=== PATIENT | male | born 1985 | race Caucasian/White ===

== ENCOUNTER 2016-09-20 14:56 | Emergency (ER) | payer OTHER ==
[2016-09-20 15:03] VITALS: BP 120/84
--- NOTE | 2016-09-20 15:34 | UC ---
Respiratory Complaint HPI - HPI Summary HPI Summary: URI last week seems to be resolving but ears feel very clogged and uncomfortable no fevers, daughter with Influenza A - History of Current Complaint Chief Complaint: UCRespiratory Stated Complaint: COUGH Time Seen by Provider: 09/20/16 15:00 Hx Obtained From: Patient Onset/Duration: Gradual Onset, Lasting Days Timing: Constant Severity Initially: Mild Severity Currently: Mild Character: Cough: Nonproductive Aggravating Factors: Nothing Alleviating Factors: Nothing Associated Signs And Symptoms: Positive: URI - Allergies/Home Medications Allergies/Adverse Reactions: Allergies Allergy/AdvReac Type Severity Reaction Status Date / Time seasonal Allergy Congestion Uncoded 09/20/16 15:00 PMH/Surg Hx/FS Hx/Imm Hx Previously Healthy: Yes - Surgical History Surgical History: Yes Surgery Procedure, Year, and Place: [place] teeth - Family History Known Family History: Positive: Unknown - Social History Occupation: Unemployed Lives: With Family Alcohol Use: Occasionally Substance Use Type: None Smoking Status (MU): Current Some Day Smoker Type: Cigarettes Length of Time of Smoking/Using Tobacco: 5 CIGS PER WEEK Have You Smoked in the Last Year: Yes Review of Systems Constitutional: Negative Skin: Negative Eyes: Negative ENT: Ear Ache Respiratory: Negative Cardiovascular: Negative Gastrointestinal: Negative Genitourinary: Negative Motor: Negative Neurovascular: Negative Musculoskeletal: Negative Neurological: Negative Psychological: Negative All Other Systems Reviewed And Are Negative: Yes Physical Exam Triage Information Reviewed: Yes Appearance: Well-Appearing, No Pain Distress, Well-Nourished Vital Signs: Initial Vital Signs Temp 97.9 F 09/20/16 15:01 Pulse 85 09/20/16 15:01 Resp 18 09/20/16 15:01 BP 120/84 09/20/16 15:01 Pulse Ox 98 09/20/16 15:01 Vital Signs Reviewed: Yes Eye Exam: Normal Eyes: Positive: Conjunctiva Clear ENT Exam: Normal ENT: Positive: Normal ENT inspection, Hearing grossly normal, Pharynx normal, Other: - tm occluded with cerumen. Negative: Nasal congestion, Nasal drainage, Tonsillar swelling, Tonsillar exudate, Trismus, Muffled/hoarse voice Dental Exam: Normal Neck exam: Normal Neck: Positive: Supple, Nontender, No Lymphadenopathy Respiratory Exam: Normal Respiratory: Positive: Chest non-tender, Lungs clear, Normal breath sounds, No respiratory distress, No accessory muscle use Cardiovascular Exam: Normal Cardiovascular: Positive: RRR, No Murmur, Pulses Normal, Brisk Capillary Refill Musculoskeletal Exam: Normal Musculoskeletal: Positive: Strength Intact, ROM Intact, No Edema Neurological Exam: Normal Neurological: Positive: Alert, Muscle Tone Normal Psychological Exam: Normal Skin Exam: Normal UC Diagnostic Evaluation - Laboratory O2 Sat by Pulse Oximetry: 98 Re-Evaluation - Re-Evaluation First Eval Change: Improved - excellent resolve of cerumen impaction with flushing patient feels much better Respiratory Course/Dx - Course Course Of Treatment: tylenol, rest increase fluids, follow with pcp avoid q-tips - Differential Dx/Diagnosis Differential Diagnosis/HQI/PQRI: Bronchitis, Influenza, Lower Resp Infection, Other - URI, Cerumen impaction Provider Diagnoses: B/L cerumen impaction, URI Discharge - Discharge Plan Condition: Stable Disposition: HOME Patient Education Materials: Cerumen Impaction (ED), Upper Respiratory Infection (ED) Referrals: Paige Gastelum MD [Primary Care Provider] - If Needed
== END 2016-09-20 15:45 | disposition home or self-care (01) ==
LOC: UCEAST 14:56
DX: J06.9 Acute upper respiratory infection, unspecified (principal); H61.23 Impacted cerumen, bilateral; Z72.0 Tobacco use
CPT/HCPCS: 99213; G0463

== ENCOUNTER 2016-11-06 12:00 | Emergency (ER) | payer OTHER ==
[2016-11-06 13:02] VITALS: BP 133/80
--- NOTE | 2016-11-06 13:35 | UC ---
Throat Pain/Nasal Naman HPI - HPI Summary HPI Summary: ONE WEEK OF SINUS PRESSURE, SORE THROAT AND PAIN. THREE DAYS OF LEFT EAR PAIN. NO FEVER. - History of Current Complaint Chief Complaint: UCRespiratory Stated Complaint: EAR PAIN Time Seen by Provider: 11/06/16 12:57 Hx Obtained From: Patient Onset/Duration: Gradual Onset, Lasting Days, Still Present Severity: Moderate Cough: None Associated Signs & Symptoms: Positive: Hoarseness, Sinus Discomfort, Nasal Discharge - Epiglottits Risk Factors Epiglottis Risk Factors: Negative - Allergies/Home Medications Allergies/Adverse Reactions: Allergies Allergy/AdvReac Type Severity Reaction Status Date / Time seasonal Allergy Congestion Uncoded 11/06/16 12:56 PMH/Surg Hx/FS Hx/Imm Hx Previously Healthy: Yes - Surgical History Surgical History: Yes Surgery Procedure, Year, and Place: [place] teeth - Family History Known Family History: Positive: Unknown - Social History Occupation: Employed Full-time Lives: With Family Alcohol Use: None Substance Use Type: None Smoking Status (MU): Former Smoker Type: Cigarettes Length of Time of Smoking/Using Tobacco: 5 CIGS PER WEEK Have You Smoked in the Last Year: Yes Review of Systems Constitutional: Negative Skin: Negative Eyes: Negative ENT: Sore Throat, Ear Ache, Nasal Discharge Respiratory: Negative Cardiovascular: Negative Gastrointestinal: Negative Genitourinary: Negative Motor: Negative Neurovascular: Negative Musculoskeletal: Negative Neurological: Negative Psychological: Negative All Other Systems Reviewed And Are Negative: Yes Physical Exam Triage Information Reviewed: Yes Appearance: Well-Appearing, No Pain Distress, Well-Nourished Vital Signs: Initial Vital Signs Temp 98.0 F 11/06/16 12:52 Pulse 81 11/06/16 12:52 Resp 18 11/06/16 12:52 BP 133/80 11/06/16 12:52 Pulse Ox 99 11/06/16 12:52 Vital Signs Reviewed: Yes Eye Exam: Normal Eyes: Positive: Conjunctiva Clear ENT: Positive: Pharyngeal erythema, TM bulging, TM dull, Tonsillar swelling, Other: - LEFT CERUMEN IMPACTION Dental Exam: Normal Neck exam: Normal Neck: Positive: Supple, Nontender, No Lymphadenopathy Respiratory Exam: Normal Respiratory: Positive: Chest non-tender, Lungs clear, Normal breath sounds Cardiovascular Exam: Normal Cardiovascular: Positive: RRR, No Murmur, Pulses Normal Abdominal Exam: Normal Abdomen Description: Positive: Nontender, No Organomegaly Musculoskeletal Exam: Normal Neurological Exam: Normal Psychological Exam: Normal Psychological: Positive: Normal Response To Family Skin Exam: Normal Throat Pain/Nasal Course/Dx - Differential Dx/Diagnosis Differential Diagnosis/HQI/PQRI: Sinusitis, Tonsillitis, URI Provider Diagnoses: LEFT CERUMEN IMPACTION. SINUSITIS. OTALGIA Discharge - Discharge Plan Condition: Stable Disposition: HOME Prescriptions: Amoxicillin/Clavulanate TAB* [Augmentin TAB 875*] 875 mg PO BID #20 tab Patient Education Materials: Sinusitis (ED), Earache (ED) Referrals: Paige Gastelum MD [Primary Care Provider] -
== END 2016-11-06 13:40 | disposition home or self-care (01) ==
LOC: UCEAST 12:00
DX: H61.22 Impacted cerumen, left ear (principal); J32.9 Chronic sinusitis, unspecified; H92.02 Otalgia, left ear; Z87.891 Personal history of nicotine dependence
CPT/HCPCS: 99213; G0463

== ENCOUNTER 2017-01-31 11:31 | Emergency (ER) | payer OTHER ==
[2017-01-31 11:45] VITALS: BP 117/71
--- NOTE | 2017-01-31 13:25 | UC ---
Ear Complaint HPI - HPI Summary HPI Summary: complaint of clogged ears ears are filled up hearing has lessened for the last week left ear is slightly pain using q-tips often to clean his ears dneis fever nad nasal congestion - History of Current Complaint Chief Complaint: UCEar Stated Complaint: EAR COMPLAINT Time Seen by Provider: 01/31/17 13:17 Hx Obtained From: Patient - Allergies/Home Medications Allergies/Adverse Reactions: Allergies Allergy/AdvReac Type Severity Reaction Status Date / Time seasonal Allergy Congestion Uncoded 01/31/17 11:45 Home Medications: Home Medications NK [No Home Medications Reported] 01/31/17 [History Confirmed 01/31/17] PMH/Surg Hx/FS Hx/Imm Hx Previously Healthy: Yes - Surgical History Surgical History: Yes Surgery Procedure, Year, and Place: [place] teeth - Family History Known Family History: Negative: Cardiac Disease, Hypertension, Diabetes - Social History Occupation: Employed Full-time Lives: With Family Alcohol Use: Occasionally Substance Use Type: None Smoking Status (MU): Current Some Day Smoker Type: Cigars Length of Time of Smoking/Using Tobacco: 5 CIGS PER WEEK Have You Smoked in the Last Year: Yes Cessation Counseling: Patient Advised to Stop Review of Systems Constitutional: Negative Skin: Negative Eyes: Negative ENT: Ear Ache Respiratory: Negative Cardiovascular: Negative Gastrointestinal: Negative Genitourinary: Negative Motor: Negative Neurovascular: Negative Musculoskeletal: Negative Neurological: Negative Psychological: Negative All Other Systems Reviewed And Are Negative: Yes Physical Exam Triage Information Reviewed: Yes Appearance: No Pain Distress, Well-Nourished Vital Signs: Initial Vital Signs Temp 97.7 F 01/31/17 11:42 Pulse 73 01/31/17 11:42 Resp 16 01/31/17 11:42 BP 117/71 01/31/17 11:42 Vital Signs Reviewed: Yes Eyes: Positive: Conjunctiva Clear ENT: Positive: Pharynx normal, Other: - both TMS not visualized d/t cerumen blocking canal Neck: Positive: No Lymphadenopathy Respiratory: Positive: Lungs clear, Normal breath sounds, No respiratory distress Cardiovascular: Positive: RRR, No Murmur, Pulses Normal Abdominal Exam: Normal Bowel Sounds: Positive: Present Musculoskeletal Exam: Normal Neurological: Positive: Alert Psychological Exam: Normal Skin Exam: Normal Re-Evaluation - Re-Evaluation First Eval Change: Improved - cerumen cleared from bioth canals TM clear and flat Ear Complaint Course/Dx - Differential Dx/Diagnosis Differential Diagnosis/HQI/PQRI: Cerumen Impaction Provider Diagnoses: cerumen impaction bilateral Discharge - Discharge Plan Condition: Stable Disposition: HOME Patient Education Materials: Cerumen Impaction (ED) Referrals: Paige Gastelum MD [Primary Care Provider] - Additional Instructions: Please review your discharge instructions. If your symptoms do not improve please call your primary care provider or return to urgent care.
== END 2017-01-31 14:10 | disposition home or self-care (01) ==
LOC: UCEAST 11:31
DX: H61.23 Impacted cerumen, bilateral (principal); F17.219 Nicotine dependence, cigarettes, with unspecified nicotine-induced disorders
CPT/HCPCS: 99213; G0463

== ENCOUNTER 2018-03-05 10:44 | Emergency (ER) | payer OTHER ==
[2018-03-05 11:22] VITALS: BP 119/73
--- NOTE | 2018-03-05 12:01 | UC ---
Throat Pain/Nasal Naman HPI - HPI Summary HPI Summary: 32 y/o male presents to the urgent care c/o nasal congestion w/ green nasal discharge since last Sunday02/27/2018. Pt reports he has Hx of seasonal allergies. But then he developed mild subjective fever and nasal discharge is now green w/ productive cough. Yesterday he had mild wheeaing in the morning. But denies Hx of Asthma. Pt has taking Mucinex PO to alleviate symptoms. Pt states mild ROQUE and sinus pain is 6/10. Pt denies dizziness, ear pain, SOB, wheezing, SON, chest pain, abdominal pain, N/V/D. - History of Current Complaint Chief Complaint: UCRespiratory Stated Complaint: SORE THROAT SINUS ISSUE Time Seen by Provider: 03/05/18 11:59 Hx Obtained From: Patient Onset/Duration: Gradual Onset, Lasting Days - 7 days, Still Present, Worse Since - yesterday Severity: Moderate Pain Intensity: 6 Pain Scale Used: 0-10 Numeric Cough: Sputum Appears - yellowish and green Associated Signs & Symptoms: Positive: Dysphagia, Wheezing - mild yesterday when he woke up, Sinus Discomfort, Nasal Discharge Related History: Seasonal Allergies - Epiglottits Risk Factors Epiglottis Risk Factors: Negative - Allergies/Home Medications Allergies/Adverse Reactions: Allergies Allergy/AdvReac Type Severity Reaction Status Date / Time seasonal Allergy Congestion Uncoded 01/31/17 11:45 PMH/Surg Hx/FS Hx/Imm Hx Previously Healthy: Yes Other Respiratory History: seasonal allergies - Surgical History Surgical History: Yes Surgery Procedure, Year, and Place: [place] teeth - Family History Known Family History: Positive: None - Pt denies FMHX Negative: Cardiac Disease, Hypertension, Diabetes - Social History Occupation: Employed Full-time Lives: With Family Alcohol Use: Occasionally Substance Use Type: None Smoking Status (MU): Current Some Day Smoker Type: Cigars Length of Time of Smoking/Using Tobacco: 5 CIGS PER WEEK Have You Smoked in the Last Year: Yes Review of Systems Constitutional: Fever - subjective at home at the beginning of symptoms Skin: Negative Eyes: Negative ENT: Sore Throat, Nasal Discharge - green, Sinus Congestion, Sinus Pain/ Tenderness Respiratory: Cough - productive Cardiovascular: Negative Gastrointestinal: Negative Genitourinary: Negative Motor: Negative Neurovascular: Negative Musculoskeletal: Negative Neurological: Headache Psychological: Negative Is Patient Immunocompromised?: No All Other Systems Reviewed And Are Negative: Yes Physical Exam - Summary Physical Exam Summary: Vitals: reviewed General: Well developed, well-nourished obese male patient with NAD. Head and face: Normocephalic and atraumatic, Positive tenderness over the frontal and maxillary sinuses.. Eyes: PERRLA, EOMI x 2. Normal conjunctiva. No eye discharge. ENT: Ears and TM with normal limits. Nose: edematous and erythematous nasal mucosa with with yellowish discharge and erythematous mucosa. Pharynx with erythema, no exudate. +moderate yellowish PND. Neck: Supple, no JVD, no carotid bruits and no lymphadenopathy. Lungs: clear, no rales, no rhonchi, no wheezes. CVS: RRR, S1 and S2 present no murmurs or gallops appreciated. Abdomen: soft nontender with positive bowel sounds. Extremities: no edema noted. Neuro: WNL. Skin: warm and dry Triage Information Reviewed: Yes Vital Signs: Initial Vital Signs Temp 97.7 F 03/05/18 11:17 Pulse 70 03/05/18 11:17 Resp 16 03/05/18 11:17 BP 119/73 03/05/18 11:17 Pulse Ox 97 03/05/18 11:17 Throat Pain/Nasal Course/Dx - Course Course Of Treatment: 32 y/o male presents to the urgent care c/o nasal congestion w/ green nasal discharge since last Sunday02/27/2018. Pt reports he has Hx of seasonal allergies. But then he developed mild subjective fever and nasal discharge is now green w/ productive cough. Yesterday he had mild wheeaing in the morning. But denies Hx of Asthma. Pt has taking Mucinex PO to alleviate symptoms. Pt states mild ROQUE and sinus pain is 6/10. Pt denies dizziness, ear pain, SOB, wheezing, SON, chest pain, abdominal pain, N/V/D. Hx obtained. Pt w/ acute bacterial sinusitis on examination. Pt with 1 week of symptoms getting worse. Pt Rx Augmentin PO and flonase nasal spray. albuterol inhaler for cough and wheezing. Discharge instructions explained to Pt. Advised to Return to the clinic or PCP if symptoms do not improve.Pt understood and agreed with plan of care. - Differential Dx/Diagnosis Differential Diagnosis/HQI/PQRI: Laryngitis, Pharyngitis, Sinusitis, URI, Other - bronchitis, asthma, Provider Diagnoses: 1- Acute bacterial sinusitis. 2- Cough Discharge - Sign-Out/Discharge Documenting (check all that apply): Patient Departure - D/C home - Discharge Plan Condition: Stable Disposition: HOME Prescriptions: Albuterol HFA INHALER* [Ventolin HFA Inhaler*] 1 - 2 puff INH Q6H PRN #1 mdi PRN Reason: Cough Amoxicillin/Clavulanate TAB* [Augmentin TAB 875*] 875 mg PO BID #20 tab Fluticasone NASAL SPRAY 50MCG* [Flonase NASAL SPRAY 50MCG*] 2 spray BOTH NARES DAILY #1 btl Patient Education Materials: Sinusitis (ED) Referrals: Paige Gastelum MD [Primary Care Provider] - 3 Days Additional Instructions: 1- Please increase fluid intake and rest. take full course of antibiotic to avoid resistance 2-Use Flonase nasal spray as directed to help drain fluid. Also buy saline drops to clear sinuses 3- Continue taking Mucinex PO to alleviates symptoms 4-Return to the clinic or PCP in 3 days if symptoms do not improve for further management and treatment - Billing Disposition and Condition Condition: STABLE Disposition: Home
== END 2018-03-05 12:40 | disposition home or self-care (01) ==
LOC: UCEAST 10:44
DX: J01.90 Acute sinusitis, unspecified (principal); B96.89 Other specified bacterial agents as the cause of diseases classified elsewhere; R05 Cough; F17.210 Nicotine dependence, cigarettes, uncomplicated; Z91.09 Other allergy status, other than to drugs and biological substances
CPT/HCPCS: 99212; G0463

== ENCOUNTER 2018-08-17 13:43 | Emergency (ER) | payer OTHER ==
--- NOTE | 2018-08-17 14:13 | UC ---
Ear Complaint HPI - HPI Summary HPI Summary: 32-year-old male comes to clinic today with a chief complaint of left ear pain. It's been going on About a week it's been getting worse. NO Known trauma. Today's noticing a little bit of dizziness. Some URI symptoms. Denies any dental pain. Patient's also noticed the rash on his left forehead is getting worse. He's had this rash on and off for about 2 years. It's worse with being outside after running. - History of Current Complaint Stated Complaint: L EAR COMPLAINT Time Seen by Provider: 08/17/18 14:02 - Allergies/Home Medications Allergies/Adverse Reactions: Allergies Allergy/AdvReac Type Severity Reaction Status Date / Time seasonal Allergy Congestion Uncoded 01/31/17 11:45 PMH/Surg Hx/FS Hx/Imm Hx Previously Healthy: Yes Respiratory History: Asthma - Surgical History Surgical History: Yes Surgery Procedure, Year, and Place: [place] teeth - Family History Known Family History: Positive: None - Pt denies FMHX, Unknown Negative: Cardiac Disease, Hypertension, Diabetes - Social History Alcohol Use: Occasionally Substance Use Type: None Smoking Status (MU): Current Some Day Smoker Type: Cigars Length of Time of Smoking/Using Tobacco: 5 CIGS PER WEEK Have You Smoked in the Last Year: Yes Review of Systems All Other Systems Reviewed And Are Negative: Yes Constitutional: Positive: Negative Skin: Positive: Other - 6MM DOME SHAPED LESION LEFT FOREARM ALSO SEE HPI Eyes: Positive: Negative ENT: Positive: Ear Ache Respiratory: Positive: Negative Cardiovascular: Positive: Negative Gastrointestinal: Positive: Negative Motor: Positive: Negative Neurovascular: Positive: Negative Musculoskeletal: Positive: Negative Neurological: Positive: Negative Psychological: Positive: Negative Is Patient Immunocompromised?: No Physical Exam Triage Information Reviewed: Yes Appearance: Well-Appearing, No Pain Distress, Well-Nourished Eye Exam: Normal Eyes: Positive: Conjunctiva Clear ENT: Positive: Pharynx normal, Nasal congestion, Nasal drainage, Other - The left ear canal is slightly swollen. Tender to palpation of the tragus on the left. Both ear canals have some cerumen but it is not impacted. The TMs are normal Neck exam: Normal Neck: Positive: Supple Respiratory Exam: Normal Respiratory: Positive: Lungs clear, Normal breath sounds, No respiratory distress Cardiovascular: Positive: RRR Musculoskeletal Exam: Normal Musculoskeletal: Positive: Strength Intact, ROM Intact Neurological Exam: Normal Neurological: Positive: Alert, Muscle Tone Normal Psychological Exam: Normal Psychological: Positive: Age Appropriate Behavior Skin: Positive: Other - 6MM DOME SHAPED LESION LEFT FOREARM Erythematous patch about 2 cm in diameter with some raised area left forehead. No vesicles. Ear Complaint Course/Dx - Course Course Of Treatment: Patient has left otitis externa and we will go ahead and treat with ear drops and by mouth antibiotics. When I discussed treating the dizziness with meclizine the patient declined as he said the dizziness is minimal. The rash in the forehead been going on off for 2 years so it is not consistent with shingles. The left forearm dome-shaped rash has been there for several years. For the 2 rashes the patient will be following up with dermatology. The ear patient will follow-up with primary care doctor if not completely improved or return for reevaluation if worse. - Differential Dx/Diagnosis Provider Diagnosis: Left swimmer's ear, Rash Discharge - Sign-Out/Discharge Documenting (check all that apply): Patient Departure All imaging exams completed and their final reports reviewed: No Studies - Discharge Plan Condition: Stable Disposition: HOME Prescriptions: Amoxicillin/Clavulanate TAB* [Augmentin TAB 875*] 875 mg PO BID #20 tab Neomyc/Polym/HC 1% OTIC SUSP* [Cortisporin Otic Susp 1%*] 4 drop LEFT EAR QID # 1 btl Patient Education Materials: Otitis Externa (ED), Acute Rash (ED) Referrals: Paige Gastelum MD [Primary Care Provider] - Artemio Fuchs MD [Medical Doctor] - Additional Instructions: FOLLOW UP WITH YOUR PRIMARY CARE DOCTOR IF NOT COMPLETELY IMPROVED. FOLLOW UP WITH DERMATOLOGY FOR YOUR RASH. GET RECHECKED FOR ANY WORSENING OF YOUR CONDITION OR QUESTIONS OR CONCERNS. - Billing Disposition and Condition Condition: STABLE Disposition: Home
[2018-08-17 14:14] VITALS: BP 132/79
== END 2018-08-17 14:20 | disposition home or self-care (01) ==
LOC: UCEAST 13:43
DX: H60.332 Swimmer's ear, left ear (principal); R21 Rash and other nonspecific skin eruption; J45.909 Unspecified asthma, uncomplicated; F17.290 Nicotine dependence, other tobacco product, uncomplicated; Z91.09 Other allergy status, other than to drugs and biological substances
CPT/HCPCS: 99212; G0463